=== PATIENT | female | born 1995 | race African-American/Black ===

== ENCOUNTER → 2021-07-06 | Outpatient (CLI) | payer OTHER ==
[~2021-07-06] MED LIST: CELE10TA PO
== END ==
LOC: M WHC 09:41
PROVIDERS: ATTEND Family Medicine
DX: N63.0 Unspecified lump in unspecified breast (principal)

== ENCOUNTER → 2021-07-31 | Outpatient (CLI) | payer OTHER ==
[2021-07-31 10:20] VITALS: BP 130/81
== END ==
LOC: M WHCPRO 07:25 → M IRPRO 07:25
PROVIDERS: ATTEND Family Medicine
DX: N60.11 Diffuse cystic mastopathy of right breast (principal)